=== PATIENT | male | born 1935 | race Caucasian/White ===

== ENCOUNTER → 2018-12-16 | Day surgery (SDC) | payer MEDICARE ==
[2018-12-12 13:43] LABS: BASOPHILS % 0.3 % (0.0-1.0); EOSINOPHILS # (AUTO) 1.1 (0.0-0.4); EOSINOPHILS % 7.9 % (0.0-6.0); HEMATOCRIT 43.2 % (38.2-49.6); HEMOGLOBIN 14.4 g/dL (14.0-18.0); LYMPHOCYTES # (AUTO) 2.5 (1.0-3.2); LYMPHOCYTES % 17.7 % (18.0-39.1); MEAN CORPUSCULAR HEMOGLOBIN 29.7 pg (28-32); MEAN CORPUSCULAR HGB CONC 33.3 g/dL (31-35); MEAN CORPUSCULAR VOLUME 89.1 fL (81-99); MONOCYTES # (AUTO) 1.3 (0.2-0.8); MONOCYTES % 9.3 % (4.4-11.3); NEUTROPHILS # (AUTO) 9.1 (2.1-6.9); NEUTROPHILS % 64.4 % (38.7-80.0); PLATELET COUNT 390 x10e3/uL (140-360); RED BLOOD COUNT 4.85 x10e6/uL (4.3-5.7)
[2018-12-12 13:54] LABS: ANION GAP 15.8 mmol/L (8-16); BLOOD UREA NITROGEN 14 mg/dL (7-26); BUN/CREATININE RATIO 13 (6-25); CALCIUM 10.3 mg/dL (8.4-10.2); CARBON DIOXIDE 26 mmol/L (22-29); CHLORIDE 98 mmol/L (98-107); CREATININE, SERUM 1.12 mg/dL (0.72-1.25); EST GLOMERULAR FILTRATION RATE > 60 ML/MIN (60-); GLUCOSE 125 mg/dL (74-118); POTASSIUM 3.8 mmol/L (3.5-5.1); SODIUM 136 mmol/L (136-145)
--- NOTE | 2018-12-12 14:02 | Diagnostic Imaging Report ---
Chest, PA and lateral. History: Preoperative evaluation for cardiothoracic surgery. Comparison: 09/21/2013 Discussion: The heart is within normal limits in size. The aorta has a tortuous and ectatic appearance. There are atherosclerotic calcifications of the thoracic aorta. There is no focal consolidation, sizable pleural effusion, or pneumothorax. Right basilar atelectasis is present. 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 IMPRESSION: No radiographic evidence of acute cardiopulmonary abnormality. Signed by: Vazquez Vargas MD on 12/12/2018 1:58 PM
[~2018-12-16] MED LIST: BREO INHALER INH; CLINDAMYCIN 600MG / 50ML 50 ML IV ONE; GLIMEPIRIDE2 MG PO; LATANOPROST2.5 ML OP; LIDOCAINE HCL 2% LOCAL INJ 5 ML SDV VIAL INJ ONE; LISINOPRIL10 MG PO; LOSARTAN POTASS25 MG PO; LOVENOX40 MG/0.4 SC; METFORMIN PO; NORCO 7.5-3251 EACH PO; NORVASC10 MG PO; OMEPRAZOLE40 MG PO; PRAVASTATIN SOD40 MG PO; PROPOFOL IV EMULSION 10 MG/ML 20 ML VIAL ONE; SEVOFLURANE INHAL SOLN 250 ML PEN BTL ONE
--- OUTSIDE RECORDS SUMMARY | 2018-12-16 08:09 | XMS REPORT ---
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 Allergies, Adverse Reactions, Alerts This patient has no known allergies or adverse reactions. Medications This patient has no known medications. Results Test Description Test Time Test Comments Text Results Atomic Results Result Comments CHEST 2 VIEWS 2018-12-12 13:57:00 [place] [address] Patient Name: ASHOK BRANTLEY MR #: [id number] : 1935 Age/Sex: 83/M Req #: [id number] [facility] Physician: Ordered by: DENIA MOTTA MD Report #: [id number] Location: OR Room/Bed: Procedure: [id number] DX/CHEST 2 VIEWS Exam Date: 12/12/18 Exam Time: 1325 REPORT STATUS: Signed Chest, PA and lateral. History: Preoperative evaluation f or cardiothoracic surgery. Comparison: 09/21/2013 Discussion: The heart is within normal limits in size. The aorta has a tortuous and ectatic appearance. There are atherosclerotic calcifications of the thoracic aorta. There is no focal consolidation, sizable pleural effusion, or pneumothorax. Right basilar atelectasis is present. 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 IMPRESSION: No radiographic evidence of acute cardiopulmonary abnormality. Signed by: Vazquez Castaneda MD on 12/12/2018 1:58 PM Dictated By: VAZQUEZ CASTANEDA MD [id number] Transcribed By: MATT on 12/12/18 7727 COPY TO: DENIA MOTTA MD
--- OUTSIDE RECORDS SUMMARY | 2018-12-16 08:09 | XMS REPORT | Clinical Summary ---
Author Author [facility] Organization [facility] Address Unknown Phone Unavailable Care Team Providers Care Size Maker Name Role Phone Lavon Cooley MD PCP Allergies Comments Active Allergy Reactions Severity Noted Date Lisinopril Other (See 05/02/2015 Comments) Penicillins Itching, High 05/02/2015 Swelling Sulfa (Sulfonamide Rash High 05/02/2015 Antibiotics) Medications End Date Status Medication Sig Dispensed Refills Start Date Active aspirin (ECOTRIN) 81 MG Take 81 mg by 0 enteric coated tablet mouth daily. Active blood sugar diagnostic Check blood 35 strip 11 strips (FREESTYLE LITE sugar once 8 STRIPS) strip test strips daily Active latanoprost (XALATAN) 0 0.005 % ophthalmic 8 solution Active triamcinolone (KENALOG) APPLY 453.6 g 1 0.1 % cream EXTERNALLY TO 8 THE AFFECTED AREA TWICE DAILY Active clonIDINE (CATAPRES) 0.1 Take 0.1 mg 0 MG tablet by mouth 2 (two) times a day as needed for high blood pressure. Active hydrOXYzine (ATARAX) 10 Take 10 mg by 0 MG tablet mouth nightly. Active losartan (COZAAR) 25 MG Take 1 tablet 90 tablet 3 tablet (25 mg total) 9 by mouth daily. Active glimepiride (AMARYL) 2 MG TAKE 1 TABLET 90 tablet 3 tablet BY MOUTH 9 EVERY MORNING [id number] BREAKFAST 01/12/2019 Active pravastatin (PRAVACHOL) Take 1 tablet 90 tablet 3 40 MG tablet (40 mg total) 9 by mouth nightly for 90 days. Active fluticasone Inhale 1 1 each 11 furoate-vilanterol (BREO inhalations 9 ELLIPTA) 100-25 mcg/dose once daily. blister with device powder for inhalation 01/12/2019 Active amLODIPine (NORVASC) 10 Take 1 tablet 90 tablet 3 mg tablet (10 mg total) 9 by mouth daily for 90 days. Active triamterene-hydrochloroth TAKE 1 90 capsule 3 iazid (DYAZIDE) 37.5-25 CAPSULE BY 9 mg per capsule MOUTH ONCE DAILY IN THE MORNING Active esomeprazole (NexIUM) 20 Take 1 90 capsule 3 MG capsule capsule (20 9 mg total) by mouth daily before breakfast. Active metFORMIN XR Take 2 tabs 180 tablet 3 (GLUCOPHAGE-XR) 750 mg 24 po at qhs 9 hr tablet Active BREO ELLIPTA 200-25 INL 1 PUFF PO 6 mcg/dose blister with QD 9 device powder for inhalation 10/14/2018 Discontinued (Reorder) fluticasone-vilanterol Inhale 1 0 (BREO ELLIPTA) 100-25 inhalations mcg/dose blister with once daily. device powder for inhalation 02/19/2018 Discontinued (Reorder) triamcinolone (KENALOG) APPLY 80 g 0 0.1 % cream EXTERNALLY TO 8 THE AFFECTED AREA TWICE DAILY 10/14/2018 Discontinued (Reorder) esomeprazole (NexIUM) 20 Take 20 mg by 0 MG capsule mouth daily before breakfast. 08/04/2018 Discontinued (Reorder) triamterene-hydrochloroth Take 1 90 capsule 1 iazid (DYAZIDE) 37.5-25 capsule by 8 mg per capsule mouth every morning. 06/26/2018 Discontinued (Reorder) pravastatin (PRAVACHOL) Take 1 tablet 90 tablet 1 40 MG tablet (40 mg total) 8 by mouth daily. 10/14/2018 Discontinued (Reorder) metFORMIN XR Take 2 tabs 180 tablet 1 (GLUCOPHAGE-XR) 750 mg 24 po at qhs 8 hr tablet 08/04/2018 Discontinued (Alternate therapy) losartan (COZAAR) 25 MG Take 1 tablet 90 tablet 1 tablet (25 mg total) 8 by mouth daily. 08/04/2018 Discontinued (Reorder) glimepiride (AMARYL) 2 MG TAKE 1 90 tablet 1 tablet TABLET(2 MG) 8 BY MOUTH DAILY BEFORE BREAKFAST 08/04/2018 Discontinued (Reorder) amLODIPine (NORVASC) 10 Take 1 tablet 90 tablet 1 mg tablet (10 mg total) 8 by mouth once daily. 02/21/2018 Discontinued (Reorder) triamcinolone (KENALOG) APPLY 80 g 0 0.1 % cream EXTERNALLY TO 8 THE AFFECTED AREA TWICE DAILY 07/01/2018 cefuroxime (CEFTIN) 500 Take 1 tablet 20 tablet 0 MG tablet (500 mg 9 total) by mouth 2 (two) times a day for 10 days. 09/24/2018 Discontinued (Reorder) pravastatin (PRAVACHOL) TAKE 1 TABLET 90 tablet 0 40 MG tablet BY MOUTH 9 EVERY NIGHT AT BEDTIME 08/14/2018 Discontinued (Reorder) triamterene-hydrochloroth TAKE 1 90 capsule 0 iazid (DYAZIDE) 37.5-25 CAPSULE BY 9 mg per capsule MOUTH ONCE DAILY IN THE MORNING 08/14/2018 Discontinued (Reorder) glimepiride (AMARYL) 2 MG TAKE 1 TABLET 90 tablet 0 tablet BY MOUTH 9 EVERY MORNING [id number] BREAKFAST 08/14/2018 Discontinued (Reorder) amLODIPine (NORVASC) 10 TAKE 1 TABLET 90 tablet 0 mg tablet BY MOUTH 9 EVERY DAY 10/14/2018 Discontinued (Reorder) triamterene-hydrochloroth TAKE 1 90 capsule 1 iazid (DYAZIDE) 37.5-25 CAPSULE BY 9 mg per capsule MOUTH ONCE DAILY IN THE MORNING 10/14/2018 Discontinued (Reorder) amLODIPine (NORVASC) 10 Take 1 tablet 90 tablet 1 mg tablet (10 mg total) 9 by mouth daily for 90 days. 10/14/2018 Discontinued (Reorder) glimepiride (AMARYL) 2 MG TAKE 1 TABLET 90 tablet 1 tablet BY MOUTH 9 EVERY MORNING [id number] BREAKFAST 10/14/2018 Discontinued (Reorder) losartan (COZAAR) 25 MG TAKE 1 TABLET 90 tablet 0 tablet BY MOUTH 9 EVERY DAY 09/29/2018 Discontinued (Reorder) pravastatin (PRAVACHOL) TAKE 1 TABLET 90 tablet 0 40 MG tablet BY MOUTH 9 EVERY NIGHT AT BEDTIME 10/14/2018 Discontinued (Reorder) pravastatin (PRAVACHOL) Take 1 tablet 90 tablet 0 40 MG tablet (40 mg total) 9 by mouth nightly for 90 days. 11/30/2018 mirtazapine (REMERON) 7.5 Take 1 tablet 90 tablet 0 MG tablet (7.5 mg 9 total) by mouth nightly for 30 days. 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 BMI 29.0-29.9,adult 04/09/2018 Overweight 04/09/2018 Glaucoma 04/09/2018 Allergy to sulfa drugs 04/09/2018 Penicillin allergy 04/09/2018 Rash and other nonspecific skin eruption 02/19/2018 Mixed hyperlipidemia 05/09/2017 History of bilateral knee replacement 05/09/2017 History of right hip replacement 05/09/2017 Pseudophakia of both eyes 05/09/2017 History of skin cancer 05/09/2017 Encounter for long-term (current) use of aspirin 05/09/2017 Family history of cancer 05/09/2017 Family history of ischemic heart disease 05/09/2017 Contact dermatitis 05/09/2017 Type 2 diabetes mellitus without complication, without long-term current 04/23/2017 use of insulin ACEI/ARB contraindicated 10/04/2016 Pulmonary fibrosis 07/05/2016 Mucopurulent chronic bronchitis 07/05/2016 Glaucoma suspect of both eyes 07/05/2016 History of cataract extraction 07/05/2016 History of colon polyps 07/05/2016 BMI 30.0-30.9,adult 02/28/2016 Adverse effect of angiotensin-converting enzyme inhibitor 05/02/2015 Benign essential HTN 05/02/2015 Gastroesophageal reflux disease 05/02/2015 Hearing loss 05/02/2015 Hypercholesteremia 05/02/2015 Obesity 05/02/2015 Primary osteoarthritis of right hip 05/02/2015 Resolved Problems Problem Noted Date Resolved Date Chronic kidney disease (CKD) stage G3a/A1, moderately decreased glomerular 04/24/2017 10/14/2018 filtration rate (GFR) between 45-59 mL/min/1.73 square meter and albuminuria creatinine ratio less than 30 mg/g Atrial fibrillation 10/04/2016 10/14/2018 Encounters Care Team Description Date Type Specialty Марина Linton MA Complete rotator cuff tear or rupture of left shoulder, not specified as traumatic (Primary Dx); Secondary osteoarthritis of left shoulder; Primary osteoarthritis of left wrist 11/10/2018 Orders Only [facility] Rosenda Weiner MA 10/31/2018 Telephone Family Medicine Amparo East NP Closed nondisplaced fracture of styloid process of left ulna, initial encounter (Primary Dx) 10/31/2018 Orders Only Family Medicine Amparo East NP Left hand pain (Primary Dx) 10/30/2018 Office Visit [facility] Lavon Kerr MD Benign essential HTN (Primary Dx); Chronic obstructive pulmonary disease, unspecified COPD type (HCC); Glaucoma suspect of both eyes; Mixed hyperlipidemia; Type 2 diabetes mellitus without complication, without long-term current use of insulin (HCC); Asbestosis (HCC) 10/14/2018 Office Visit [facility] Марина Buckley MA 09/29/2018 Orders Only Family Lavon Kerr MD 09/24/2018 Refill [facility] Lavon Kerr MD 08/19/2018 Refill [facility] Марина Linton MA 08/14/2018 Orders Only Lavon Colbert MD 08/04/2018 Refill [facility] Lavon Kerr MD 07/15/2018 Orders Only Lavon Colbert MD Skin rash (Primary Dx); Rash, skin; Rash and other nonspecific skin eruption 07/14/2018 Office Visit Lavon Colbert MD Lobar pneumonia (HCC) (Primary Dx) 07/01/2018 Office Visit Family Lavon Kerr MD 06/26/2018 Refill [facility] Medicine Neri Schafer DO Allencherril, Paul Joseph, MD Pneumonia of right lower lobe due to infectious organism (HCC) (Primary Dx); Hypoxia; Leukocytosis, unspecified type 06/15/2018 [facility] - Encounter 06/21/2018 Amparo East NP Hypertensive heart disease without heart failure (Primary Dx); Persistent atrial fibrillation (HCC); Pulmonary fibrosis (HCC); Gastroesophageal reflux disease without esophagitis; Type 2 diabetes mellitus with stage 3 chronic kidney disease, without long-term current use of insulin (HCC); Sensorineural hearing loss (SNHL) of both ears; Rash and other nonspecific skin eruption; Primary osteoarthritis of right hip; Chronic kidney disease (CKD) stage G3a/A1, moderately decreased glomerular filtration rate (GFR) between 45-59 mL/min/1.73 square meter and albuminuria creatinine ratio less than 30 mg/g ([facility]); Pseudophakia of both eyes; History of cataract extraction, unspecified laterality; Primary open angle glaucoma of both eyes, moderate stage; History of skin cancer; History of right hip replacement; History of colon polyps; History of bilateral knee replacement; Family history of ischemic heart disease; Family history of cancer; Encounter for long-term (current) use of aspirin; Adverse effect of angiotensin-converting enzyme inhibitor, subsequent encounter; BMI 29.0-29.9,adult; Overweight; Glaucoma, unspecified glaucoma type, unspecified laterality; Allergy to sulfa drugs; Penicillin allergy; Mixed hyperlipidemia; Purpura senilis (HCC) 04/09/2018 Office Visit Family Medicine Марина Linton MA Diabetic eye exam (HCC) (Primary Dx) 03/31/2018 Orders Only Family Medicine Bharti Solis MA Pulmonary fibrosis (HCC) (Primary Dx); Primary osteoarthritis of right hip 02/24/2018 Orders Only Family Medicine Rosenda Weiner MA 02/21/2018 Refill Family Medicine Amparo East NP Rash and other nonspecific skin eruption (Primary Dx) 02/19/2018 Office Visit Family Medicine Need for immunization against influenza (Primary Dx) 12/18/2017 Clinical Family Medicine Support after 12/15/2017 Immunizations Name Administration Dates Next Due FLUZONE HIGH-DOSE PF 12/18/2017, 12/31/2016, 01/17/2016, 01/11/2015 Influenza Trivalent 01/22/2014 Influenza, Unspecified 12/23/2016 Pneumococcal Conjugate 10/18/2014 [facility] Family History Medical History Relation Name Comments COPD Father No Known Problems Mother Relation Name Status Comments Father Mother Social History Date Tobacco Use Types Packs/Day Years Used Never Smoker Smokeless Tobacco: Never Used Drinks/Week oz/Week Comments Alcohol Use occ Yes Sex Assigned at Date Recorded Not on file Industry Job Start Date Occupation Not on file Not on file Not on file Travel End Travel History Travel Start No recent travel history available. Last Filed Vital Signs Reading Time Taken Comments Vital Sign 123/70 10/30/2018 8:39 AM CDT Blood Pressure 79 10/30/2018 8:39 AM CDT Pulse 36.4 C (97.6 F) 10/30/2018 8:39 AM CDT Temperature 16 07/14/2018 11:16 AM CDT Respiratory Rate 98% 10/30/2018 8:39 AM CDT Oxygen Saturation - - Inhaled Oxygen Concentration 82 kg (180 lb 12.8 oz) 10/30/2018 8:39 AM CDT Weight 165.1 cm (5' 5") 10/30/2018 8:39 AM CDT Height 30.09 10/30/2018 8:39 AM CDT Body Mass Index Plan of Treatment Care Team Description Date Type Specialty Amparo East NP [id number] [id number] 04/16/2019 Office Visit Family Medicine Health Maintenance Due Date Last Done Comments DIABETIC RETINAL EYE EXAM 1935 SHINGLES VACCINES (#2) 08/24/1999 06/24/1999 INFLUENZA VACCINE 10/23/2018 12/18/2017, 12/31/2016, 12/23/2016, Additional history exists DIABETIC FOOT EXAM 10/15/2019 10/14/2018, 10/14/2018 65+ PNEUMOCOCCAL VACCINE Completed 09/22/2018, 10/18/2014 Procedures Comments Procedure Name Priority Date/Time Associated Diagnosis XR HAND 3+ VW LEFT Routine 10/30/2018 Left hand pain 9:45 AM CDT CBC WITH PLATELET AND Routine 10/14/2018 Asbestosis (HCC) DIFFERENTIAL 9:04 AM CDT HEMOGLOBIN A1C Routine 10/14/2018 Type 2 diabetes mellitus 9:04 AM CDT without complication, without long-term current use of insulin (HCC) URINALYSIS, AUTOMATED Routine 10/14/2018 Benign essential HTN WITH MICROSCOPY 9:04 AM CDT MICROALBUMIN / CREATININE Routine 10/14/2018 Type 2 diabetes mellitus URINE RATIO 9:04 AM CDT without complication, without long-term current use of insulin (HCC) BASIC METABOLIC PANEL Routine 10/14/2018 Benign essential HTN 9:04 AM CDT SURGICAL PATHOLOGY Routine 07/15/2018 REQUEST 4:31 PM CDT CBC WITH PLATELET AND Routine 07/01/2018 Lobar pneumonia (HCC) DIFFERENTIAL 5:00 PM CDT POC GLUCOSE Routine 06/21/2018 11:35 AM CDT XR CHEST 2 VW STAT 06/21/2018 8:56 AM CDT POC GLUCOSE Routine 06/21/2018 6:43 AM CDT HC COMPLETE BLD COUNT Routine 06/21/2018 W/AUTO DIFF 5:34 AM CDT POC GLUCOSE Routine 06/20/2018 8:40 PM CDT POC GLUCOSE Routine 06/20/2018 4:40 PM CDT POC GLUCOSE Routine 06/20/2018 11:30 AM CDT HC COMPLETE BLD COUNT Routine 06/20/2018 W/AUTO DIFF 6:28 AM CDT POC GLUCOSE Routine 06/20/2018 5:16 AM CDT POC GLUCOSE Routine 06/19/2018 8:44 PM CDT POC GLUCOSE Routine 06/19/2018 5:29 AM CDT POC GLUCOSE Routine 06/18/2018 9:06 PM CDT POC GLUCOSE Routine 06/18/2018 3:54 PM CDT POC GLUCOSE Routine 06/18/2018 11:13 AM CDT POC GLUCOSE Routine 06/18/2018 6:13 AM CDT ESTIMATED GFR Routine 06/18/2018 4:15 AM CDT BASIC METABOLIC PANEL Routine 06/18/2018 4:15 AM CDT HC COMPLETE BLD COUNT Routine 06/18/2018 W/AUTO DIFF 4:15 AM CDT POC GLUCOSE Routine 06/17/2018 3:51 PM CDT POC GLUCOSE Routine 06/17/2018 10:59 AM CDT POC GLUCOSE Routine 06/17/2018 5:23 AM CDT MAGNESIUM LEVEL Routine 06/17/2018 5:16 AM CDT ESTIMATED GFR Routine 06/17/2018 5:16 AM CDT BASIC METABOLIC PANEL Routine 06/17/2018 5:16 AM CDT HC COMPLETE BLD COUNT Routine 06/17/2018 W/AUTO DIFF 5:16 AM CDT POC GLUCOSE Routine 06/16/2018 9:[address] CHEST WO CONTRAST STAT 06/16/2018 5:02 PM CDT POC GLUCOSE Routine 06/16/2018 3:39 PM CDT POC GLUCOSE Routine 06/16/2018 11:07 AM CDT URINE CULTURE STAT 06/16/2018 9:50 AM CDT URINALYSIS SCREEN AND STAT 06/16/2018 MICROSCOPY, WITH REFLEX 9:46 AM CDT TO CULTURE LACTIC ACID LEVEL STAT 06/16/2018 9:10 AM CDT LACTIC ACID LEVEL, SEPSIS Timed 06/16/2018 - NOW AND REPEAT 2X EVERY 7:25 AM CDT 3 HOURS TROPONIN Timed 06/16/2018 7:25 AM CDT CONSULT TO SEPSIS Routine 06/16/2018 Pneumonia of right lower RESPONSE TEAM 6:58 AM CDT lobe due to infectious organism (HCC) POC GLUCOSE Routine 06/16/2018 6:27 AM CDT LACTIC ACID LEVEL, SEPSIS Timed 06/16/2018 - NOW AND REPEAT 2X EVERY 4:43 AM CDT 3 HOURS TROPONIN Timed 06/16/2018 4:43 AM CDT POC GLUCOSE Routine 06/16/2018 1:14 AM CDT MANUAL DIFFERENTIAL STAT 06/15/2018 8:22 PM CDT ESTIMATED GFR STAT 06/15/2018 8:22 PM CDT LACTIC ACID LEVEL, SEPSIS STAT 06/15/2018 - NOW AND REPEAT 2X EVERY 8:22 PM CDT 3 HOURS B NATRIURETIC PEPTIDE STAT 06/15/2018 8:22 PM CDT TROPONIN STAT 06/15/2018 8:22 PM CDT COMPREHENSIVE METABOLIC STAT 06/15/2018 PANEL 8:22 PM CDT CBC WITH PLATELET AND STAT 06/15/2018 DIFFERENTIAL 8:22 PM CDT BLOOD CULTURE, AEROBIC & Routine 06/15/2018 ANAEROBIC 4:20 PM CDT BLOOD CULTURE, AEROBIC & Routine 06/15/2018 ANAEROBIC 4:20 PM CDT XR CHEST 2 VW STAT 06/15/2018 3:23 PM CDT ECG ED PRELIMINARY Routine 06/15/2018 INTERPRETATION 3:04 PM CDT MD CRITICAL CARE, E/M Routine 06/15/2018 30-74 MINUTES 3:04 PM CDT RESPIRATORY PATHOGEN STAT 06/15/2018 PANEL 2:36 PM CDT INFLUENZA ANTIGEN TEST, Routine 06/15/2018 REFLEX NEGATIVE TO RPP 2:36 PM CDT ECG 12-LEAD STAT 06/15/2018 2:15 PM CDT CBC WITH PLATELET AND Routine 04/02/2018 Mucopurulent chronic DIFFERENTIAL 8:06 AM ANATOMIC PATHOLOGIST bronchitis (HCC) URINALYSIS, AUTOMATED Routine 04/02/2018 Type 2 diabetes mellitus WITH MICROSCOPY 8:06 AM ANATOMIC PATHOLOGIST with diabetic nephropathy, without long-term current use of insulin (HCC) HEMOGLOBIN A1C Routine 04/02/2018 Type 2 diabetes mellitus 8:06 AM ANATOMIC PATHOLOGIST with diabetic nephropathy, without long-term current use of insulin (HCC) MICROALBUMIN / CREATININE Routine 04/02/2018 Type 2 diabetes mellitus URINE RATIO 8:06 AM ANATOMIC PATHOLOGIST with diabetic nephropathy, without long-term current use of insulin (HCC) HEPATIC FUNCTION PANEL Routine 04/02/2018 Mixed hyperlipidemia 8:06 AM ANATOMIC PATHOLOGIST LIPID PANEL Routine 04/02/2018 Mixed hyperlipidemia 8:06 AM ANATOMIC PATHOLOGIST BASIC METABOLIC PANEL Routine 04/02/2018 Benign hypertensive heart 8:06 AM ANATOMIC PATHOLOGIST disease without CHF after 12/15/2017 Results * XR Hand 3+ Vw Left (10/30/2018 9:45 AM CDT) Specimen Narrative Performed At EXAMINATION:XR HAND 3VW LEFT HM [facility] INDICATION:M79.642 Pain in left hand, pain left hand COMPARISON:None IMPRESSION: 1.No acute fracture or dislocation. 2.Severe degenerative changes of the first CMC joint, first through third MCP joints and milder degenerative changes of several scattered interphalangeal joints. 3.Moderate intercarpal, distal radioulnar and radiocarpal joint degenerative changes are also seen. Remote ulnar styloid avulsion fracture. 4.Small focus of calcification seen along the dorsal aspect of the distal carpal row could reflect hydroxyapatite deposition. Periarticular calcifications are also seen about the first and third MCP joints and along the volar aspect of the wrist. [id number] Procedure Note Hm Interface, Radiology Results Incoming - 10/30/2018 10:43 AM CDT EXAMINATION: XR HAND 3 VW LEFT INDICATION: M79.642 Pain in left hand, pain left hand COMPARISON:None IMPRESSION: 1. No acute fracture or dislocation. 2. Severe degenerative changes of the first CMC joint, first through third MCP joints and milder degenerative changes of several scattered interphalangeal joints. 3. Moderate intercarpal, distal radioulnar and radiocarpal joint degenerative changes are also seen. Remote ulnar styloid avulsion fracture. 4. Small focus of calcification seen along the dorsal aspect of the distal carpal row could reflect hydroxyapatite deposition. Periarticular calcifications are also seen about the first and third MCP joints and along the volar aspect of the wrist. [id number] Performing Organization Address City/[facility]/Zipcode Phone Number [facility] [address] [place] [address] * Microalbumin / creatinine urine ratio (10/14/2018 9:04 AM CDT) Only the most recent of 2 results within the time period is included. Creatinine, 41 20 - 320 mg/dL [facility] urine, random [facility] [place] Microalbumin, <0.2 See Note: mg/dL [facility] urine Comment: DI[facility]NOST[facility] Reference Range: [place] Reference Range Not established Microalbumin/cr NOTE <30 mcg/mg creat [facility] eatinine ratio Comment: DIAGNOSTICS The microalbumin value is less BELL than 0.2 mg/dL therefore we are unable to calculate excretion and/or creatinine ratio. The ADA defines abnormalities in albumin excretion as follows: Category Result (mcg/mg creatinine) Normal <30 Microalbuminuria 30-299 Clinical albuminuria > QB=024 The ADA recommends that at least two of three specimens collected within a 3-6 month period be abnormal before considering a patient to be within a diagnostic category. Specimen Urine Resulting Agency Comment Performing Organization Information: Site ID: [id number] Name: [facility] Address: [address] [place] [id number] Director: Marbin Strong Performing Organization Address City/[facility]/Zipcode Phone Number [place] [address] [phone] * Urinalysis, automated with microscopy (10/14/2018 9:04 AM CDT) Only the most recent of 2 results within the time period is included. Color, UA YELLOW YELLOW [facility] [place] Appearance CLEAR CLEAR [facility] [place] Specific 1.009 1.001 - 1.035 [facility] gravity, urine [facility] [place] pH, urine 7.0 5.0 - 8.0 [facility] [place] Glucose, urine NEGATIVE NEGATIVE [facility] [place] Bilirubin, UA NEGATIVE NEGATIVE [facility] [place] Ketones, UA NEGATIVE NEGATIVE [facility] [place] Occult blood, NEGATIVE NEGATIVE [facility] urine [facility] [place] Protein, UA NEGATIVE NEGATIVE [facility] [place] Nitrite, UA NEGATIVE NEGATIVE [facility] [place] Leukocyte NEGATIVE NEGATIVE [facility] esterase, UA [facility] [place] WBC, UA NONE SEEN < OR=5 /HPF [facility] [place] RBC, UA NONE SEEN < OR=2 /HPF [facility] [place] Squamous NONE SEEN < OR=5 /HPF [facility] epithelial [facility]AGNOSTICS cells, UA [place] Bacteria, UA NONE SEEN NONE SEEN /HPF [facility] [place] Hyaline casts, NONE SEEN NONE SEEN /LPF [facility] UA [facility] [place] Specimen Urine Resulting Agency Comment Performing Organization Information: Site ID: [id number] Name: [facility] Address: [address] [place] [phone] Director: Marbin Strong Performing Organization Address City/State/Zipcode Phone Number [place] [phone] * CBC with platelet and differential (10/14/2018 9:04 AM CDT) Only the most recent of 8 results within the time period is included. WBC 11.8 (H) 3.8 - 10.8 [facility] Thousand/uL [facility] [place] RBC 4.98 4.20 - 5.80 [facility] Million/uL [facility] [place] HGB 15.0 13.2 - 17.1 g/dL [facility] [place] HCT 44.9 38.5 - 50.0 % [facility] [place] MCV 90.2 80.0 - 100.0 fL [facility] [place] MCH 30.1 27.0 - 33.0 pg [facility] [place] MCHC 33.4 32.0 - 36.0 g/dL [facility] [place] RDW 12.4 11.0 - 15.0 % [facility] [place] Platelet count 350 140 - 400 [facility] Thousand/uL [facility] [place] MPV 9.5 7.5 - 12.5 fL [facility] [place] Neutrophils, 6,915 1,500 - 7,800 [facility] absolute cells/uL [facility] [place] Lymphocytes, 2,620 850 - 3,900 cells/uL [facility] absolute [facility] [place] Monocytes, 968 (H) 200 - 950 cells/uL [facility] absolute [facility] [place] Eosinophils, 1,251 (H) 15 - 500 cells/uL [facility] absolute [facility] [place] Basophils, 47 0 - 200 cells/uL [facility] absolute [facility] [place] Neutrophils 58.6 % [facility] [place] Lymphocytes 22.2 % [facility] [place] Monocytes 8.2 % [facility] [place] Eosinophils 10.6 % [facility] [place] Basophils + RC 0.4 % [facility] [email or web address] [place] Specimen Blood Resulting Agency Comment Performing Organization Information: Site ID: [facility] Name: [facility] Address: [address] [place] [id number] Director: Marbin Strong Performing Organization Address City/State/Zipcode Phone Number D[facility] [place] [address] [place] [address] * Hemoglobin A1c (10/14/2018 9:04 AM CDT) Only the most recent of 2 results within the time period is included. Hemoglobin A1C 6.5 (H) <5.7 % of total Hgb [facility] Comment: DI[facility]NOST[facility] For someone without known [place] diabetes, a hemoglobin A1c value of 6.5% or greater indicates that they may have diabetes and this should be confirmed with a follow-up test. For someone with known diabetes, a value <7% indicates that their diabetes is well controlled and a value greater than or equal to 7% indicates suboptimal control. A1c targets should be individualized based on duration of diabetes, age, comorbid conditions, and other considerations. Currently, no consensus exists regarding use of hemoglobin A1c for diagnosis of diabetes for children. Specimen Blood Resulting Agency Comment Performing Organization Information: Site ID: [id number] Name: [facility] Address: [address] [place] [phone] Director: Marbin Strong Performing Organization Address City/State/Zipcode Phone Number DANIEL [facility] [place] [address] [place] [phone] * Basic metabolic panel (10/14/2018 9:04 AM CDT) Only the most recent of 4 results within the time period is included. Glucose 104 (H) 65 - 99 mg/dL [facility] Comment: DIAGNO[facility] reference interval For someone without known diabetes, a glucose value between 100 and 125 mg/dL is consistent with prediabetes and should be confirmed with a follow-up test. BUN 17 7 - 25 mg/dL [facility] [place] Creatinine 1.05 0.70 - 1.11 mg/dL [facility] Comment: DIAGNOSTICS For patients >49 years of age, [place] the reference limit for Creatinine is approximately 13% higher for people identified as -[place]. EGFR Non-Afr. 64 > OR=60 [facility] [place] mL/min/1.73m2 [facility] [place] EGFR 75 > OR=60 [facility] [place] mL/min/1.73m2 [facility] [place] BUN/creatinine NOT APPLICABLE 6 - 22 (calc) [facility] ratio [facility] [place] Sodium 135 135 - 146 mmol/L [facility] [place] Potassium 3.7 3.5 - 5.3 mmol/L [facility] [place] Chloride 99 98 - 110 mmol/L [facility] [place] CO2 26 20 - 32 mmol/L [facility] [place] Calcium 9.8 8.6 - 10.3 mg/dL [facility] [place] Specimen Blood Resulting Agency Comment Performing Organization Information: Site ID: [id number] Name: [facility] Address: [address] [place] [id number] Director: Marbin Strong Performing Organization Address City/State/Zipcode Phone Number [place] [phone] * Surgical pathology request (07/15/2018 4:31 PM CDT) Clinical Comment: [facility] information Chronic rash four years on [place] trunk and extremities. PATH[facility]Y ASS[facility] Preoperative diagnosis: [place] Unknown; maybe eczema Pathologist Comment: JULIA Smith M.D., [place] Board Certified in Anatomic PATHOLOGY ASSOC Pathology,Dermatopathology, [place] [phone] (electronic signature) Source LEFT THIGH [facility] [place] [facility] [place] Procedure Comment: Punch [facility] [place] [facility] Gross Comment: [facility] description: Specimen container is labeled [place] with patient's PATHOLOGY ASSOC name, accession number and [place] "left leg rash/left thigh" per requisition.Received in formalin are two cisneros, roughened, mottled punch biopsies of skin both measuring 0.3 cm in diameter by 0.3 and 0.4 cm in depth.The deeper specimen is inked blue, and the other specimen is inked green. Both specimens are bisected and entirely submitted in one cassette.(TE) Gross exam(s) performed at: [facility] [place] [address] [place] [address] Cutter Out: MIRZA NORRIS MD,PHD Micro Comment: [facility] description Examination reveals irregular [place] psoriasiform PATHOLOGY ASSOC hyperplasia with prominent [place] hypergranulosis, hyperkeratosis, and focal parakeratosis. There is fibrosis of the upper dermis which is manifest as thickened, vertically-oriented bundles of collagen. Also present is a superficial perivascular dermal infiltrate consisting of lymphocytes, plasma cells, and histiocytes. Diagnosis Comment: [facility] Lichen simplex chronicus. [place] NO COLLECTION DATE RECEIVED. PATHOLOGY ASSOC WE HAVE USED [place] THE DATE THE SPECIMEN WAS RECEIVED BY THIS LABORATORY THE COLLECTION DATE. IF THIS IS INCORRECT, PLEASE CONTACT CLIENT SERVICES. PHONE NUMBER: [phone] Specimen Narrative Performed At FASTING: UNKNOWN [facility] Resulting Agency Comment Performing Organization Information: Site ID: [id number] Name: [facility] Address: [address] [place] [address], [address] [place] [address] Director: Иван Smith MD Performing Organization Address [facility]/Zipcode Phone Number [facility] [address] [place] [address] PATHOLOGY ASSOC [facility] * POC glucose (06/21/2018 11:35 AM CDT) Only the most recent of 20 results within the time period is included. POC glucose 168 (H) 65 - 100 mg/dL [place] Comment: MELISA OSEI Meter ID: [id number] [facility] Loom Tuner: [facility] Specimen Performing Organization Address City/State/Zipcode Phone Number [facility] [address] [place] [address] PATHOLOGY AND GENOMIC MEDICINE [place] MELISA OSEI [facility] Matt Saab [address] * XR Chest 2 Vw (06/21/2018 8:56 AM CDT) Only the most recent of 2 results within the time period is included. Specimen Narrative Performed At EXAMINATION:XR CHEST 2 VW HM [facility] CLINICAL HISTORY:Chest pain or SOBpleurisy or effusion suspected COMPARISON:June 15, 2018 chest IMPRESSION: Near-complete clearing patchy bibasilar atelectasis Mild hypoinflation No infiltrate congestion or effusion. No pneumothorax. The Cardiomediastinal silhouette is normal in size. Atherosclerosis arch aorta. Moderate degenerative changes throughout the spine and shoulders similar to previous. Two view chest. . [id number] Procedure Note Interface, Radiology Results Incoming - 06/21/2018 9:07 AM CDT EXAMINATION: XR CHEST 2 VW CLINICAL HISTORY: Chest pain or SOB pleurisy or effusion suspected COMPARISON: June 15, 2018 chest IMPRESSION: Near-complete clearing patchy bibasilar atelectasis Mild hypoinflation No infiltrate congestion or effusion. No pneumothorax. The Cardiomediastinal silhouette is normal in size. Atherosclerosis arch aorta. Moderate degenerative changes throughout the spine and shoulders similar to previous. Two view chest. . [id number] Performing Organization Address City/[facility]/Zipcode Phone Number [facility] [address] [place] [address] * Estimated GFR (06/18/2018 4:15 AM CDT) Only the most recent of 3 results within the time period is included. Estimated GFR 50 (A) mL/min/1.73 m2 [place] Comment: [facility] G1 >=90 Normal or high G2 60-89Mildly decreased [id number] Mildly to moderately decreased [id number] Moderately to severely decreased G4 15-29Severely decreased G5 <15Kidney failure The eGFR was calculated using the Chronic Kidney Disease Epidemiology Collaboration (CKD-EPI) equation. Interpretation is based on recommendations of the National Kidney Foundation-Kidney Disease Outcomes Quality Initiative (NKF-KDOQI) published in 2014. Specimen Plasma specimen Performing Organization Address City/[facility]/Zipcode Phone Number [address] [place] [address] PATHOLOGY AND GENOMIC MEDICINE [address] [place], [place] [id number] [place] [address] * Magnesium level (06/17/2018 5:16 AM CDT) Magnesium 2.10 1.60 - 2.40 mg/dL [facility] Specimen Plasma specimen Performing Organization Address City/[facility]/Zipcode Phone Number [facility] [address] [place] [address] PATHOLOGY AND GENOMIC MEDICINE [facility] [address] [place] [address] [facility] * CT Chest Wo Contrast (06/16/2018 5:02 PM CDT) Specimen Narrative Performed At EXAMINATION: [facility] CT CHEST WO CONTRAST CLINICAL HISTORY: Acute resp years old TECHNIQUE: Multiple axial images of the chest were obtained without intravenous contrast. The lack of intravenous contrast reduces the sensitivity of detecting solid organ disease and evaluating vasculature. Sagittal and coronal computerized reformatted images were also obtained.Automatic exposure control and iterative reconstruction techniques used to reduce dose. COMPARISON: November 07, 2016 IMPRESSION: Interval development of diffuse groundglass opacities with alveolar infiltrates in the posterior right upper lobe and superior segment of the right lower lobe and to a lesser extent the basilar segment of the right lower lobe worrisome for multifocal pneumonia. Prominent interstitial thickening peripherally in the bilateral upper and lower lobes compatible with chronic interstitial fibrosis The heart is enlarged Diffuse calcified atherosclerotic vascular disease throughout the arterial structures. No significant lymphadenopathy No focal lesions Diffuse calcified atherosclerotic vascular disease throughout the arterial structures. Age related changes are present throughout the bony structures without evidence of a suspicious focal lesion. Procedure Note Interface, Radiology Results Incoming - 06/16/2018 5:08 PM CDT EXAMINATION: CT CHEST WO CONTRAST CLINICAL HISTORY: Acute resp illness 38 years old TECHNIQUE: Multiple axial images of the chest were obtained without intravenous contrast. The lack of intravenous contrast reduces the sensitivity of detecting solid organ disease and evaluating vasculature. Sagittal and coronal computerized reformatted images were also obtained.Automatic exposure control and iterative reconstruction techniques used to reduce dose. COMPARISON: November 07, 2016 IMPRESSION: Interval development of diffuse groundglass opacities with alveolar infiltrates in the posterior right upper lobe and superior segment of the right lower lobe and to a lesser extent the basilar segment of the right lower lobe worrisome for multifocal pneumonia. Prominent interstitial thickening peripherally in the bilateral upper and lower lobes compatible with chronic interstitial fibrosis The heart is enlarged Diffuse calcified atherosclerotic vascular disease throughout the arterial structures. No significant lymphadenopathy No focal lesions Diffuse calcified atherosclerotic vascular disease throughout the arterial structures. Age related changes are present throughout the bony structures without evidence of a suspicious focal lesion. Performing Organization Address City/State/Zipcode Phone Number [facility] [address] [place] [address] * Urine culture (06/16/2018 9:50 AM CDT) Urine culture SEE COMMENTComment: [place] Bacteriuria screen negative. [facility] Specimen Performing Organization Address City/State/Zipcode Phone Number [facility] [address] [place] [address] PATHOLOGY AND GENOMIC MEDICINE [facility] [address] * Urinalysis screen and microscopy, with reflex to culture (06/16/2018 9:46 AM CDT) Specimen site Clean catch [facility] Color, UA Yellow [facility] Appearance, UA Clear [facility] Specific 1.009 1.001 - 1.035 [place] gravity, [facility] pH, UA 6.0 5.0 - 8.5 [facility] Protein, UA Negative Negative [facility] Glucose, UA Negative Negative [facility] Ketones, UA Negative Negative [facility] Bilirubin, UA Negative Negative [facility] Blood, UA Small (A) Negative [facility] Nitrite, UA Negative Negative [facility] Urobilinogen, Negative <2.0 [facility] Leukocyte Negative Negative [place] esterase, UA [facility] Epithelial Few /HPF [place] cells, UA [facility] WBC, UA <1 0 - 1 /HPF [facility] RBC, UA 1 0 - 5 /HPF [facility] Bacteria, UA None seen None seen [facility] Yeast, UA None seen [facility] Yeast with None seen [place] [facility] Specimen Urine Performing Organization Address City/State/Zipcode Phone Number [facility] [address] [place] [address] PATHOLOGY AND GENOMIC MEDICINE [facility] [address] [place], [place] [id number] [place] [address] * Lactic acid level (06/16/2018 9:10 AM CDT) Lactic acid 1.6 0.5 - 2.2 mmol/L [facility] Specimen Blood Performing Organization Address City/[facility]/Zipcode Phone Number [facility] [address] [place] [phone] PATHOLOGY AND [facility] MEDICINE [facility] [address] * Lactic acid level, SEPSIS - Now and repeat 2x every 3 hours (06/16/2018 7:25 AM CDT) Only the most recent of 3 results within the time period is included. Pathologist [facility] Lactic acid 1.2 0.5 - 2.2 mmol/L [facility] Specimen Blood Performing Organization Address City/[facility] Phone Number [address] * Troponin (06/16/2018 7:25 AM CDT) Only the most recent of 3 results within the time period is included. Pathologist [facility] Troponin <0.30 0.00 - 0.30 ng/mL [place] Comment: [facility] 0.11 - 1.49 [facility] ng[facility] indicate increased risk of acute coronary syndrome. >=1.5 ng/ml Consistent with acute myocardial infarction. The diagnostic value of a single normal or non-diagnostic result is questionable.Serial samples at 2-6 hour intervals are required to rule out acute myocardial injury. Specimen Plasma specimen Performing Organization Address City/[facility] Hospitalcode Phone Number [address] * Sepsis Clinical Assessment (06/16/2018 6:58 AM CDT) Narrative Performed At Nathalie Roper NP 06/16/20189:30 AM Mr Telles is an 83 y/o male, with PMH of HTN, HLD, DM, and asbestosis, who was admitted for CAP. Sepsis consult triggered by leukocytosis, hypothermia ( 96.4) and tachypnea. LA went up to 2.8 from 1.9. Sepsis bunlde initiated in ED ( BC x 2, LA, Rocephin, Azithromycin, and 1Lfluid bolus plus maintenance ). BP 111/57. Will continue abx and give 1 more liter of fluid bolus. Trend LA. Defer further management to primary. Sepsis Clinical Assessment Performed by: Nathalie Roper NP Authorized by: Nathalie Roper NP Sepsis Clinical Assessment General Assessment Information Current sepsis score:3 On comfort care?: No If score does not worsen, snooze alerts until:06/16/2018 18:58 CDT SIRS Criteria Temperature < 36.0 C (96.8 F) due to acute condition Respirations > 20/min due to acute condition WBC > 12 K/mcL due to acute condition Organ Dysfunction Lactate > 2.0 mmol/L due to acute condition Sepsis Assessment Clinical suspicion of infection? Yes Time of suspicion of infection:06/16/2018 6:59 AM Clinical suspicion of sepsis?: Yes Sepsis staging:Severe sepsis Severe Sepsis T0:06/16/2018 6:59 AM Sepsis protocol started?Yes Where did the protocol start?:ED Started Suspected Type/Source of Infection Suspected Type of Infection: Bacterial Suspected Source of Infection: Pneumonia Other Acute Diagnoses Other Acute Diagnosis: Pneumonia Focus Exam Sepsis focus exam performed at 06/16/2018 9:29 AM Cardiopulmonary Exam Heart: Regular rate & rhythm Left Lung: Clear Right Lung: Clear Capillary Refill Capillary refill rate: Brisk, < 3 s Peripheral Pulses Left dorsalis pedis:Normal Right dorsalis pedis:Normal Left posterial tibial: Normal Right posterial tibial:Normal Left radial:Normal Right radial:Normal Skin Exam Skin exam: Skin color normal Sepsis Related Vitals Heart rate: 80 Temperature: (!) 96.4 F Respiratory rate: 22 Blood pressure: 111/57 Altered mental status: WBC Date Value 06/15/2018 25.5 k/uL ()04/02/2018 10.1 Thousand/uL Weight-Based Fluid Bolus Calculation The recommended weight-based bolus volume: 2,313 mL (dosing weight) Please refer to the MAR for actual med/fluid administrations. * Manual differential (06/15/2018 8:22 PM CDT) Manual PERFORMED BELL differential [facility] Neutrophils 95.0 (H) 36.0 - 66.0 % [facility] Lymphocytes 4.0 (L) 24.0 - 44.0 % [facility] Monocytes 1.0 0.0 - 6.0 % [facility] Eosinophils 0.0 0.0 - 6.0 % [facility] Basophils 0.0 0.0 - 1.2 % [facility] Metamyelocytes 0 0 - 1 % [facility] Promyelocytes 0 0 - 1 % [facility] Platelet slide Charlie adequate [place] review [facility] Neutrophils, Slight [place] vacuolated [facility] Hypersegmented Occasional [place] neutrophils [facility] Enlarged Slight [place] platelets [facility] Specimen Performing Organization Address City/[facility]/Zipcode Phone Number [facility] [address] [place] [address] PATHOLOGY AND GENOMIC MEDICINE [address] * B natriuretic peptide (06/15/2018 8:22 PM CDT) [facility] BNP 164 (H) 0 - 100 pg/mL [facility] Specimen Blood Performing Organization Address City/[facility] Phone Number [facility] [place] [address] PATHOLOGY AND GENOMIC MEDICINE [address] * Comprehensive metabolic panel (06/15/2018 8:22 PM CDT) [facility] Sodium 133 (L) 135 - 150 mEq/L [facility] Potassium 3.5 3.5 - 5.0 mEq/L [facility] Chloride 97 (L) 98 - 112 mEq/L [facility] CO2 24 24 - 31 mmol/L [facility] Anion gap 12@ANIO 7 - 15 mEq/L [facility] BUN 27 (H) 7 - 18 mg/dL [facility] Creatinine 1.80 (H) 0.70 - 1.20 mg/dL [facility] Glucose 176 (H) 65 - 100 mg/dL [facility] Calcium 8.7 (L) 8.8 - 10.2 mg/dL [facility] Protein 7.1 6.3 - 8.3 g/dL [facility] Albumin 2.6 (L) 3.5 - 5.0 g/dL [facility] A/G ratio 0.6 (L) 0.7 - 3.8 [facility] Alkaline 85 0 - 129 U/L [place] phosphatase [facility] AST 13 10 - 50 U/L [facility] ALT 9 5 - 50 U/L [facility] Total bilirubin 0.5 0.2 - 1.2 mg/dL [facility] Specimen Plasma specimen Performing Organization Address City/[facility] Phone Number [facility] [address] [place] [address] PATHOLOGY AND GENOMIC MEDICINE [address] * Blood culture, aerobic & anaerobic (06/15/2018 4:20 PM CDT) Only the most recent of 2 results within the time period is included. Blood culture No growth after 5 days of [place] isolate incubation. Y[facility]ISM Comment: HOSPITAL Specimen Information Specimen Source: Blood Specimen Site: LAC Specimen Blood Performing Organization Address City/[facility]/Zipcode Phone Number [facility] DE[facility] [address] [place] [address] PATHOLOGY AND GENOMIC MEDICINE [address] * ECG ED Preliminary Interpretation - Not an Order (06/15/2018 3:04 PM CDT) Narrative Performed At Neri Schafer DO 06/17/20187:39 AM ECG ED Preliminary Interpretation - Not an Order Performed by: Neri Schafer DO Authorized by: Neri Schafer DO ECG reviewed by ED Physician in the absence of a biofuels plant superintendent: yes Interpretation: Interpretation: abnormal Rate: ECG rate:94 ECG rate assessment: normal Rhythm: Rhythm: sinus rhythm and A-V block Ectopy: Ectopy: none QRS: QRS axis:Left QRS intervals:Normal Conduction: Conduction: abnormal Abnormal conduction: 1st degree ST segments: ST segments:Normal T waves: T waves: normal * CRITICAL CARE (06/15/2018 3:04 PM CDT) Narrative Performed At Neri Schafer DO 06/17/20187:39 AM Critical Care Performed by: Neri Schafer DO Authorized by: Neri Schafer DO Critical care provider statement: Critical care time (minutes):35 Critical care time was exclusive of:Separately billable procedures and treating other patients Critical care was necessary to treat or prevent imminent or life-threatening deterioration of the following conditions:Sepsis Critical care was time spent personally by me on the following activities:Development of treatment plan with patient or surrogate, discussions with primary provider, evaluation of patient's response to treatment, examination of patient, interpretation of cardiac output measurements, obtaining history from patient or surrogate, ordering and performing treatments and interventions, ordering and review of laboratory studies, ordering and review of radiographic studies, pulse oximetry, re-evaluation of patient's condition and review of old charts * Respiratory pathogen panel (06/15/2018 2:36 PM CDT) [facility] Respiratory Negative for all pathogens [facility] pathogen panel tested: [facility]ISM Negative for Adenovirus HOSPITAL Negative for Coronavirus HKU1 Negative for Coronavirus NL63 Negative for Coronavirus 229E Negative for Coronavirus OC43 Negative for Human Metapneumovirus Negative for Rhinovirus/Enterovirus Negative for Influenza A Negative for Influenza A/H1 Negative for Influenza A/H3 Negative for Influenza A/H1-2009 Negative for Influenza B Negative for Parainfluenza Virus 1 Negative for Parainfluenza Virus 2 Negative for Parainfluenza Virus 3 Negative for Parainfluenza Virus 4 Negative for Respiratory Syncytial Virus Negative for Bordetella pertussis Negative for Chlamydophila pneumoniae Negative for Mycoplasma pneumoniae This real-time PCR assay detects the presence of nucleic acids (RNA or DNA) for the respiratory pathogens listed. A result of "Not-detected" does not exclude the possibility of the presence of one or more pathogens at concentrations less than the detectable limits of the assay. Comment: Specimen Information Specimen Source: Nasopharyngeal Specimen Site: swab Specimen Nasopharyngeal Performing Organization Address City/State/Zipcode Phone Number [facility] DEPARTMENT OF [address] [place] [address] PATHOLOGY AND GENOMIC MEDICINE [place] YARSANISM [address] [place] [address] HOSPITAL * Influenza antigen test, reflex negative to RPP (06/15/2018 2:36 PM CDT) Pathologist [facility] Influenza Negative for Influenza A/B [place] antigen antigen. [facility]ISM [facility] Comment: [facility] Specimen Information HOSPITAL Specimen Source: Nares Specimen Site: Not otherwise specified Specimen Nares - Not otherwise specified Performing Organization Address City/[facility]/Zipcode Phone Number [facility] [address] [facility] [place] [address] PATHOLOGY AND GENOMIC MEDICINE [place] YARSANISM OSEI [address] [facility] [place], [place] [id number] [place] [address] * ECG 12 lead (06/15/2018 2:15 PM CDT) Pathologist [facility] Ventricular 94 [facility] MUSE rate Atrial rate 94 [facility] MD interval 276 [facility] QRSD interval 94 [facility] QT interval 344 [facility] QTC interval 430 [facility] P axis 1 59 [facility] QRS axis 1 -31 [facility] T wave axis 33 [facility] EKG impression Sinus rhythm with 1st degree [facility] MUSE AV block-Left axis deviation-Abnormal ECG- Specimen Narrative Performed At Performing Organization Address [facility] Phone Number [facility] [address] [place] [address] * Hepatic function panel (04/02/2018 8:06 AM ANATOMIC PATHOLOGIST) Pathologist [facility] Protein 7.1 6.1 - 8.1 g/dL [facility] [place] Albumin, S 4.1 3.6 - 5.1 g/dL [facility] [place] Globulin, total 3.0 1.9 - 3.7 g/dL [facility] (calc) [facility] [place] Albumin/globuli 1.4 1.0 - 2.5 (calc) [facility] n [facility] [place] Total bilirubin 0.7 0.2 - 1.2 mg/dL [facility] [place] Bilirubin 0.1 < OR=0.2 mg/dL [facility] [place] Bilirubin, 0.6 0.2 - 1.2 mg/dL [facility] indirect (calc) [facility] [place] Alkaline 65 40 - 115 U/L [facility] phosphatase [facility] [place] AST 19 10 - 35 U/L [facility] [place] ALT 13 9 - 46 U/L [facility] [place] Specimen Blood Narrative Performed At FASTING: UNKNOWN [facility] Resulting Agency Comment Performing Organization Information: Site ID: [id number] Name: [facility] Address: [address] [place] [id number] Director: Carolina Monroe Performing Organization Address City/[facility] Phone Number [place] [address] [place] [address] [id number] * Lipid panel (04/02/2018 8:06 AM ANATOMIC PATHOLOGIST) Cholesterol, 156 <200 mg/dL [facility] [place] HDL cholesterol 55 >40 mg/dL [facility] Triglycerides 104 <150 mg/dL [facility] LDL cholesterol 81 mg/dL (calc) [facility] calculated Comment: [facility]NO[facility] Reference range: <100 [place] Desirable range <100 mg/dL for primary prevention; <70 mg/dL for patients with CHD or diabetic patients with > or=2 CHD risk factors. LDL-C is now calculated using the Yan-Gissel calculation, which is a validated novel method providing better accuracy than the Friedewald equation in the estimation of LDL-C. Yan SS et al. TERRY. 2013;310(19): 4354-4545 (http://education.Leaky.TravelSite.com/faq/JEG478) Cholesterol/HDL 2.8 <5.0 (calc) [facility] Non-HDL 101 <130 mg/dL (calc) [facility] cholesterol Comment: DIAGNOSTICS For patients with diabetes [place] plus 1 major ASCVD risk factor, treating to a non-HDL-C goal of <100 mg/dL (LDL-C of <70 mg/dL) is considered a therapeutic option. Specimen Blood Narrative Performed At FASTING: UNKNOWN [facility] Resulting Agency Comment Performing Organization Information: Site ID: [id number] Name[facility] Address: [address] [place] [id number] Director: Carolina Monroe Performing Organization Address City/[facility]/Zipcode Phone Number [place] [address] [place] [phone] after 12/15/2017 Insurance Type Payer Benefit Subscriber ID Effective Phone Address Plan / Dates Group PPO [employer] xxxxxxxx [id number] [employer] [place] PPO [facility] Advance Directives For more information, please contact: [phone] Patient Dag Sprayer Explanation Type Date Recorded Advance Directives, Living Will and Medical Power of Ultrasound Technologist Sonographer Advance Directives, 04/03/2016 10:28 AM Living Will and Medical Power of Ultrasound Technologist Sonographer Advance Directives, 2016 1:56 PM Living Will and Medical Power of Ultrasound Technologist Sonographer Advance Directives, 06/15/2018 6:04 PM Living Will and Medical Power of Ultrasound Technologist Sonographer
[2018-12-16 08:52] LABS: BASOPHILS % 0.2 % (0.0-1.0); EOSINOPHILS # (AUTO) 0.9 (0.0-0.4); EOSINOPHILS % 5.5 % (0.0-6.0); HEMOGLOBIN 14.6 g/dL (14.0-18.0); LYMPHOCYTES # (AUTO) 2.2 (1.0-3.2); LYMPHOCYTES % 13.3 % (18.0-39.1); MEAN CORPUSCULAR HEMOGLOBIN 30.1 pg (28-32); MEAN CORPUSCULAR VOLUME 88.7 fL (81-99); MONOCYTES # (AUTO) 1.3 (0.2-0.8); MONOCYTES % 8.2 % (4.4-11.3); NEUTROPHILS # (AUTO) 11.7 (2.1-6.9); NEUTROPHILS % 72.4 % (38.7-80.0); PLATELET COUNT 383 x10e3/uL (140-360); RED BLOOD COUNT 4.85 x10e6/uL (4.3-5.7)
[2018-12-16 11:20] VITALS: BP 133/81
--- NOTE | 2018-12-16 16:50 | Operative Report ---
DATE OF PROCEDURE: 12/16/2018 SURGEON: Jerod Acevedo MD EXPERIMENTAL DISPLAY BUILDER: Maxx Rojo, certified PA. PREOPERATIVE DIAGNOSIS: Left carpal tunnel syndrome. POSTOPERATIVE DIAGNOSIS: Left carpal tunnel syndrome. PROCEDURE: Left endoscopic carpal tunnel release. INDICATIONS: The patient is an 83-year-old gentleman, who has clinic signs and symptoms consistent with left carpal tunnel syndrome. He has failed conservative management and would like to proceed with surgical intervention. The risks and benefits of an endoscopic versus open carpal tunnel release have been explained. He states he understands and wishes to proceed. PROCEDURE IN DETAIL: The patient was brought to the operating room and placed under general anesthetic. His left upper extremity was prepped and draped in a sterile manner. He received prophylactic antibiotics in the holding area. A preoperative time-out was performed. The extremity was exsanguinated and a proximal tourniquet was inflated to 250 mmHg. A 1 cm incision was made over the flexion crease of the left wrist. The palmaris longus was retracted to the radial side of the wound. The flexor retinaculum was elevated and incised. An elevator was used to tease the tenosynovium off the undersurface of the transverse carpal ligament. Dilators were placed and the hook of the hamate was palpated. The MicroAire endoscope was placed into the carpal tunnel. The undersurface of the transverse carpal ligament was cleanly visualized without evidence of soft tissue interposition. The knife was deployed and the ligament was cut from distal to proximal. A full-thickness cut was noted. The proximal retinaculum was incised under direct visualization. The wound was closed with 2 interrupted nylon stitches. A sterile bandage was applied. He was extubated and transported to the recovery room in stable condition. There was no blood loss and all needle and sponge counts were correct. Jerod Acevedo MD DR/PIPPA /[id number]
== END | disposition home or self-care (01) ==
LOC: OR 08:07
PROVIDERS: ATTEND Specialist
DX: G56.02 Carpal tunnel syndrome, left upper limb (principal); I10 Essential (primary) hypertension; E11.9 Type 2 diabetes mellitus without complications; Z79.84 Long term (current) use of oral hypoglycemic drugs; Z01.812 Encounter for preprocedural laboratory examination; Z01.818 Encounter for other preprocedural examination
CPT/HCPCS: 29848; 36415 ×2; 71046; 80048; 82948; 85025 ×2; J2001; J2704